=== PATIENT | female | born 1970 | race Caucasian/White ===

== ENCOUNTER 2020-01-17 13:36 | Emergency (ER) | payer OTHER, SELFPAY ==
--- NOTE | 2020-01-17 | CT_ITS ---
EXAMINATION: CT ABDOMEN AND PELVIS WITH CONTRAST CLINICAL INFORMATION: Abdominal pain COMPARISON: None TECHNIQUE: Multidetector volumetric images were obtained from the superior aspect of the liver through the pubic symphysis following administration 85 mL of Omnipaque 350 intravenous contrast. Sagittal and coronal reformatted images were obtained on the technologist's workstation. Oral contrast: Yes This CT examination was performed using dose optimization techniques as appropriate, variously including the following: *Automated exposure control *Adjustment of mA and/or kV according to patient size (this includes techniques or standardized protocols for targeted exams where dose is matched to indication/reason for exam; i.e. extremities or head) *Use of iterative reconstruction technique DLP: 924 mGy-cm FINDINGS: LUNG BASES: The visualized lung bases are unremarkable. LIVER, GALLBLADDER, AND BILIARY TREE: The liver is normal in size, shape, and attenuation. No focal hepatic lesion or biliary ductal dilatation is present. The gallbladder is unremarkable with no evidence of radiopaque gallstones, gallbladder wall thickening, or obvious pericholecystic inflammatory changes. PANCREAS: Unremarkable. SPLEEN: Unremarkable. ADRENAL GLANDS: Unremarkable. KIDNEYS AND URETERS: The kidneys are normal in size, shape, and attenuation. No hydronephrosis, hydroureter, or calculi seen. No perinephric stranding. BLADDER: Unremarkable. GASTROINTESTINAL TRACT: There is mild diverticulosis of the colon. The small and large bowel are otherwise unremarkable. The appendix is unremarkable. ABDOMINAL WALL: No significant hernia is appreciated. LYMPH NODES: Normal. VASCULAR: Unremarkable. PELVIC VISCERA: There is a lobulated contour to the posterior body of the uterus. This is slightly increased in attenuation with respect to the uterus and is questionable for a fibroid. There is a 1.8 cm slightly irregularly-shaped cyst in the right ovary. There is a small amount of fluid in the pelvis. OSSEOUS STRUCTURES: Unremarkable. IMPRESSION: 1.8 cm slightly complex right ovarian cyst and small amount of fluid in the pelvis. Question posterior uterine fibroid. Findings could be better evaluated with pelvic ultrasound if clinically indicated. Mild diverticulosis of the colon. No evidence of diverticulitis.
[2020-01-17 13:44] VITALS: BP 114/76; PULSE 87; RESP 16; TEMP 36.5; O2SAT 100; BMI 70.5
--- NOTE | 2020-01-17 13:58 | ED_ITS ---
HPI - Abdominal Pain General Chief Complaint: Abdominal Pain Stated Complaint: abdominal pain Time Seen by Provider: 01/17/20 13:58 Source: patient Mode of arrival: ambulatory Limitations: no limitations History of Present Illness HPI narrative: 49 y/o female presenting with acute onset of lower abdominal pain that started this morning. She describes it as sharp, intense 10/10 pain that radiates to her entire abdomen. She had nausea when the pain was severe but no vomiting, diarrhea, or fevers. Pain is significantly improved and now described as sore. MD elicited complaint: abdominal pain Pertinent past history: none Onset (ago): hour(s) (4) Pain Consistency: constant Location: RLQ and LLQ Severity: severe Quality: cramping and stabbing Radiation: RUQ and epigastric Migration to: no migration Exacerbating factors: movement Relieving factors: nothing Associated symptoms: nausea Related Data Patient : No Previous Rx's Medication Instructions Recorded naproxen 500 mg PO BID PRN #20 tab 01/17/20 oxycodone 5 mg PO Q8H PRN #10 tab NS 01/17/20 Allergies Allergy/AdvReac Type Severity Reaction Status Date / Time No Known Allergies Allergy Unverified 12/26/19 15:41 Review of Systems Review of Systems Constitutional: No Fever, No Chills ENT/Mouth: No sore throat, No Rhinorrhea, No Swallowing Difficulty Eyes: No Eye Pain, No Swelling, No Redness Cardiovascular: No Chest Pain, No SOB, No Orthopnea, No Edema Respiratory: No Cough, No Sputum, No Wheezing, No dyspnea Gastrointestinal: + Nausea, No Vomiting, No Diarrhea, + abdominal Pain, No Hematochezia, No Melena Genitourinary: No Dysuria, No Urinary Frequency, No Hematuria, No vaginal discharge or bleeding Musculoskeletal: No joint pain, No Myalgias Skin: No Skin Lesions, No rash Neuro: No Weakness, No Numbness, No Dizziness, No Headache Psych: No Anxiety/Panic, No Depression Heme/Lymph: No Bruising, No Lymphadenopathy Endocrine: No Polyuria, No Polydipsia Physical Exam Vital Signs and I&O and Narrative: Vital Signs and I&O: Vital Signs Temp 97.7 F 01/17/20 13:44 Pulse 78 01/17/20 15:48 Resp 16 01/17/20 15:48 BP 150/76 H 01/17/20 15:48 Pulse Ox 100 01/17/20 15:48 Intake & Output 01/16/20 01/17/20 01/17/20 18:59 06:59 18:59 Weight 236 kg Body Mass Index 70.5 Appearance: Alert. Oriented X3. No acute distress. Eyes: Pupils equal, round and reactive to light. ENT: Pharynx normal. Neck: Normal inspection. Neck supple. CVS: Normal heart rate and rhythm. Pulses normal. Respiratory: No respiratory distress. Breath sounds normal. Abdomen: Soft, lower abdominal tenderness without rebound or guarding, no masses. +BS x4 exam deferred Skin: Skin warm and dry. Normal skin color. Normal skin turgor. No rashes. Extremities: No lower extremity edema. Neuro: Oriented X 3. No motor deficit. No sensory deficit. Course Course Course Narrative: given dose of morphine with resolution of the pain. Labs unremarkable. CT scan showing 1.8 cm complex ovarian cyst. It is possible that she had brief ovarian torsion and she was counseled on this. She has had no further abdominal pain here. She agrees to follow up with her MICROCOMPUTER SUPPORT SPECIALIST and return to the ED if severe pain recurs. She is stable for discharge. MDM - Abdominal Pain Differential Diagnosis Differential diagnosis: Likely abdominal pain, constipation, diverticulitis, endometriosis, gastroenteritis, ovarian cyst and renal colic Medical Records Attestation: I reviewed the patient's medical records. Lab Data Attestation: I reviewed the patient's lab results. Result diagrams: 01/17/20 14:46 01/17/20 14:46 Labs: Lab Results 01/17/20 01/17/20 01/17/20 Range/Units 14:46 14:46 15:14 WBC 10.5 (4.8-10.8) X10*3/uL RBC 4.52 (4.20-5.50) X10*6/uL Hgb 13.8 (12.0-16.0) g/dl Hct 41.6 (37-47) % MCV 92.0 (80-98) fL MCH 30.5 (27.0-33.0) pg MCHC 33.2 (31.0-35.0) g/dl RDW 14.5 (11.0-16.0) % Plt Count 289 (160-400) X10*3/uL MPV 10.3 (9.4-12.3) fL Immature Gran % (Auto) 0.3 (0.0-0.4) % Neut % (Auto) 76.3 H (45-73) % Lymph % (Auto) 11.8 L (20-40) % [place] % (Auto) 10.9 (2-11) % Eos % (Auto) 0.2 (0-4) % Baso % (Auto) 0.5 (0-2) % Lymph # (Auto) 1.2 (1.2-4.9) X10*3/uL [place] # (Auto) 1.1 (0.1-1.2) X10*3/uL Eos # (Auto) 0.0 (0.0-0.4) X10*3/uL Baso # (Auto) 0.1 (0.0-0.2) X10*3/uL Abs Immat Gran (auto) 0.03 (0.00-0.03) X10*3/uL Absolute Neuts (auto) 8.0 (2.0-8.3) X10*3/uL Absolute Nucleated RBC 0.000 (0.0-0.012) X10*3/uL Nucleated RBC % (auto) 0.0 (0.0-0.2) /100WBC Sodium 135 (135-145) mmol/L Potassium 4.2 (3.3-5.1) mmol/l Chloride 104 (96-108) mmol/L Carbon Dioxide 23 (22-29) mmol/L Anion Gap 12 (12-20) BUN 10 (9-16) mg/dL Creatinine 0.89 (0.5-1.4) mg/dL Estim Creat Clear Calc 170.5 Estimated GFR > 60 Random Glucose 89 (60-115) mg/dL Calcium 9.3 (8.4-10.2) mg/dL Total Bilirubin 0.7 (0.0-1.0) mg/dL Direct Bilirubin 0.3 (0.0-0.5) mg/dL AST 18 (5-31) U/L ALT 19 (0-31) U/L Alkaline Phosphatase 74 (39-117) U/L Total Protein 7.1 (6.5-8.0) g/dL Albumin 4.5 (3.5-5.0) g/dL Lipase 5 L (8-78) U/L Urine Color YELLOW Urine Appearance CLEAR Urine pH 6.0 (5.0-8.0) Ur Specific [place] <= 1.005 (1.005-1.025) Urine Protein NEG (NEG-TRACE) MG/DL Urine Glucose (UA) NEG (NEG) MG/DL Urine Ketones 15 (NEG) MG/DL Urine Blood TRACE (NEG) Urine Nitrite NEG (NEG) Ur Leukocyte Esterase NEG (NEG) Urine RBC 0-2 (0) /HPF Urine WBC 0 (0-4) /HPF Ur Squamous Epith Cells TRACE /LPF Urine Bacteria NONE /LPF Urine Test NEGATIVE (NEGATIVE) Critical Care Time Critical Care Time Critical Care Time: No Discharge Plan Discharge Clinical Impression: Ovarian cyst Qualifiers: Laterality: right Qualified Code(s): N83.201 - Unspecified ovarian cyst, right side Patient Disposition: Home, Self-Care Instructions: Ovarian Cyst (ED) Additional Instructions: Follow up with your Certified Medicine Aide for further management. If you have recurrent severe pain, call 911 or come back to the ER for further evaluation. Prescriptions: New oxycodone 5 mg tablet 5 mg PO Q8H PRN (Reason: pain) Qty: 10 RF: 0 naproxen 500 mg tablet 500 mg PO BID PRN (Reason: pain) Qty: 20 RF: 0 Referrals: José Miguel Mohamud MD [Physician] - 2 days COUNTS INCLUDE 234 BEDS AT THE [facility] Past Medical History Attestation statement: The following information was validated with the patient. Medical History (Updated 01/17/20 @ 16:49 by LAWSON Garcia) No known health problems Social History Social History Advance Directives: Yes Advance Directives Information Provided: Yes Advance Directives on File: No
[2020-01-17 15:01] LABS: MANUAL DIFF FLAG NO
[2020-01-17 15:04] LABS: Basophils Absolute Auto 0.1 X10*3/uL (0.0-0.2); Basophils Percent Auto 0.5 % (0-2); Eosinophils Percent Auto 0.2 % (0-4); Hematocrit 41.6 % (37-47); Hemoglobin 13.8 g/dl (12.0-16.0); Imm Gran Abs Auto 0.03 X10*3/uL (0.00-0.03); Imm Gran Pct Auto 0.3 % (0.0-0.4); Lymphocytes Absolute Auto 1.2 X10*3/uL (1.2-4.9); Lymphocytes Percent Auto 11.8 % (20-40); Mean Corpuscular HGB Conc 33.2 g/dl (31.0-35.0); Mean Corpuscular Hemoglobin 30.5 pg (27.0-33.0); Mean Platelet Volume 10.3 fL (9.4-12.3); Monocytes Absolute Auto 1.1 X10*3/uL (0.1-1.2); Monocytes Percent Auto 10.9 % (2-11); Neutrophils Percent Auto 76.3 % (45-73); Platelet Count 289 X10*3/uL (160-400); Red Blood Count 4.52 X10*6/uL (4.20-5.50); Red Cell Distribution Width 14.5 % (11.0-16.0); White Blood Count 10.5 X10*3/uL (4.8-10.8)
[2020-01-17 15:27] LABS: Glucose Urine UA NEG (NEG); Leukocyte Esterase Urine NEG (NEG); Nitrite Urine NEG (NEG); Specific Gravity - Urine <= 1.005 (1.005-1.025); Urine Blood TRACE (NEG); Urine Ketones 15 MG/DL (NEG); Urine Protein NEG (NEG-TRACE)
[2020-01-17 15:30] VITALS: RESP 18
[2020-01-17] MEDS: Morphine Sulfate 4 MG/ML CARTRIDGE IVPUSH (15:30)
[2020-01-17 15:31] LABS: Appearance Urine CLEAR; Color Urine YELLOW
[2020-01-17 15:32] LABS: Alanine Aminotransferase 19 U/L (0-31); Albumin Level 4.5 g/dL (3.5-5.0); Alkaline Phosphatase 74 U/L (39-117); Anion Gap 12 (12-20); Aspartate Amino Transferase 18 U/L (5-31); Bilirubin Direct 0.3 mg/dL (0.0-0.5); Bilirubin Total 0.7 mg/dL (0.0-1.0); Blood Urea Nitrogen 10 mg/dL (9-16); Calcium 9.3 mg/dL (8.4-10.2); Carbon Dioxide 23 mmol/L (22-29); Chloride 104 mmol/L (96-108); Creatinine Clr Calc Pharmacy 170.5; Estimated Glomerular Filt Rate > 60; Glucose Random 89 mg/dL (60-115); Lipase 5 U/L (8-78); Potassium 4.2 mmol/l (3.3-5.1); Sodium 135 mmol/L (135-145); Total Protein 7.1 g/dL (6.5-8.0)
--- NOTE | 2020-01-17 15:34 | PC.NURSE ---
MEDICATED FOR PAIN TRANSPORTED TO CT SCAN
[2020-01-17 15:44] LABS: RBC Urine 0-2 /HPF (0); Squamous Epithelial Cell Urine TRACE /LPF; WBC Urine 0 /HPF (0-4)
[2020-01-17] MEDS: iohexoL 350 MG/ML 100 ML INFUS..BTL 85 ML IV (15:44)
[2020-01-17 15:45] LABS: UPreg QC Valid YES; Urine Pregnancy NEGATIVE (NEGATIVE)
[2020-01-17 15:48] VITALS: BP 150/76; PULSE 78; RESP 16; O2SAT 100
--- NOTE | 2020-01-17 16:08 | PC.NURSE ---
GOOD EFFECT AFTER RECEIVING MORPHINE FOR PAIN
[2020-01-17 16:55] VITALS: BP 152/88; PULSE 75; RESP 16; TEMP 36.6
== END 2020-01-17 16:59 | disposition home or self-care (01) ==
PROVIDERS: Physician Assistant; Emergency Provider Internal Medicine; PCP Internal Medicine
DX: N83.201 Unspecified ovarian cyst, right side (principal); R11.0 Nausea
CPT/HCPCS: 36415; 74177; 80048; 80076; 81001; 81025; 83690; 85025; 96374; 99284; J2270

== ENCOUNTER 2020-11-07 16:57 | Emergency (ER) | payer OTHER, SELFPAY ==
--- NOTE | ~2020-11-07 | CT_ITS ---
EXAMINATION: CT ABDOMEN AND PELVIS WITH CONTRAST CLINICAL INFORMATION: Abdominal pain, right lower quadrant. COMPARISON: 01/17/2020 TECHNIQUE: Multidetector volumetric images were obtained from the superior aspect of the liver through the pubic symphysis following administration 85 mL of Omnipaque 350 intravenous contrast. Sagittal and coronal reformatted images were obtained on the technologist's workstation. Oral contrast: No This CT examination was performed using dose optimization techniques as appropriate, variously including the following: *Automated exposure control *Adjustment of mA and/or kV according to patient size (this includes techniques or standardized protocols for targeted exams where dose is matched to indication/reason for exam; i.e. extremities or head) *Use of iterative reconstruction technique DLP: 843 mGy-cm FINDINGS: LUNG BASES: The visualized lung bases are unremarkable. LIVER, GALLBLADDER, AND BILIARY TREE: The liver is normal in size, shape, and attenuation. No focal hepatic lesion or biliary ductal dilatation is present. The gallbladder is unremarkable with no evidence of radiopaque gallstones, gallbladder wall thickening, or obvious pericholecystic inflammatory changes. PANCREAS: Unremarkable. SPLEEN: Unremarkable. ADRENAL GLANDS: Unremarkable. KIDNEYS AND URETERS: The kidneys are normal in size, shape, and attenuation. No hydronephrosis, hydroureter, or calculi seen. No perinephric stranding. BLADDER: Unremarkable. GASTROINTESTINAL TRACT: Stomach, small bowel, and colon are normal in caliber. No bowel wall thickening. Appendix is normal in caliber. There is focal intraperitoneal free fluid in the right lower quadrant adjacent to a few loops of otherwise normal appearing small bowel as well as the right ovary. Small amount of free fluid is present in the pelvis as well. This fluid measures between 15 Hounsfield units in the right lower quadrant and 0 Hounsfield units in the pelvis. There is mild diverticulosis in the descending and sigmoid colon without evidence of acute diverticulitis. ABDOMINAL WALL: No significant hernia is appreciated. LYMPH NODES: Normal. VASCULAR: A few small atherosclerotic calcifications are present in the iliac arteries. No aneurysmal dilatation. PELVIC VISCERA: Ill-defined 4 cm fibroid is present at the posterior aspect of the uterine body. A 2.5 cm simple appearing cyst is evident at the left ovary. No discrete right ovarian cyst, though there is surrounding fluid and fat stranding in this region. OSSEOUS STRUCTURES: Minimal degenerative disc disease. No acute osseous findings. CT/CT abdomen pelvis w con IMPRESSION: Small limb of fluid in the pelvis and right lower quadrant, potentially imaging on the right ovary. No acute bowel abnormalities are identified. Normal appendix. Consider correlation with pelvic ultrasound if clinically warranted. Colonic diverticulosis without evidence of acute diverticulitis. A 4 cm uterine fibroid.
[2020-11-07 17:10] VITALS: BP 158/88; PULSE 80; TEMP 36.6; O2SAT 98; BMI 32.5
--- NOTE | 2020-11-07 17:25 | ED_ITS ---
HPI - Abdominal Pain General Chief Complaint: Abdominal Pain Stated Complaint: abd pain Source: patient Mode of arrival: ambulatory Limitations: no limitations History of Present Illness HPI narrative: 50-year-old female with past medical history of ovarian cysts presents with a few hours of 10/10 sharp stabbing and aching right lower quadrant abdominal pain. Patient was playing golf and noted to have pain so sig nificant that she had to stop, had a difficult time walking. She does not report fevers or chills, chest pain or pressure, palpitations, abnormal vaginal bleeding or discharge, dysuria, hematuria, or any other concerning symptoms. MD elicited complaint: abdominal pain Pertinent past history: other (Ovarian cysts) Onset (ago): hour(s) Pain Consistency: constant Location: RLQ Severity: severe Pain scale (0-10): 10 Quality: stabbing, aching and sharp Radiation: none Migration to: no migration Exacerbating factors: movement Relieving factors: nothing Associated symptoms: denies other symptoms Treatments prior to arrival: NSAIDs Related Data Patient : No Previous Rx's Medication Instructions Recorded naproxen 500 mg tablet 500 mg PO BID PRN #20 tab 01/17/20 oxycodone 5 mg tablet 5 mg PO Q8H PRN #10 tab NS 01/17/20 naproxen 500 mg tablet 500 mg PO BID PRN #20 tab 11/07/20 oxycodone 5 mg tablet 5 mg PO Q8H PRN #10 tab 11/07/20 Allergies Allergy/AdvReac Type Severity Reaction Status Date / Time No Known Allergies Allergy Unverified 12/26/19 15:41 Review of Systems Review of Systems Constitutional: No Weight loss, No Fever, No Chills, No Night Sweats, No Fatigue, No Malaise ENT/Mouth: No Hearing loss, No Ear Pain, No Nasal Congestion, No Sinus Pain, No Hoarseness, No sore throat, No Rhinorrhea, No Swallowing Difficulty Eyes: No Eye Pain, No Swelling, No Redness, No Foreign Body, No Discharge, No Vision Changes Cardiovascular: No Chest Pain, No SOB, No Dyspnea on Exertion, No Orthopnea, No Edema, No Palpitations Respiratory: No Cough, No Sputum, No Wheezing, No Smoke Exposure, No Dyspnea Gastrointestinal: No Nausea, no Vomiting, no Diarrhea, positive abdominal Pain, No Hematochezia, No Melena Genitourinary: no irregular bleeding, No Dysuria, No Urinary Frequency, No Hematuria, No Urinary Incontinence, No Urgency, No Flank Pain, No Urinary Flow Changes, No Hesitancy Musculoskeletal: No joint pain, No Myalgias, No Joint Swelling Skin: No Skin Lesions, No rash Neuro: No Weakness, No Numbness, No Paresthesias, No Loss of Consciousness, No Dizziness, No Headache Psych: No Anxiety/Panic, No Depression, No SI/HI/AH/VH, No Social Issues Heme/Lymph: No Bruising, No Bleeding,No Lymphadenopathy Endocrine: No Polyuria, No Polydipsia, No Temperature Intolerance Yes all other systems are reviewed and are negative Physical Exam Vital Signs: Vital Signs: Last Vital Signs Temp 98.3 F 11/07/20 19:47 Pulse 82 11/07/20 19:47 Resp 16 11/07/20 21:01 BP 142/78 H 11/07/20 19:47 Pulse Ox 99 11/07/20 19:47 Body Mass Index 32.5 Appearance: Alert. Oriented X3. Moderate distress. Eyes: Pupils equal, round and reactive to light. EOMI, sclera nonicteric ENT: Pharynx normal. Moist mucous membranes Neck: Normal inspection. Neck supple. CVS: Normal heart rate and rhythm. Pulses normal. No chest wall tenderness Respiratory: No respiratory distress. Breath sounds normal. Abdomen: Soft and positive tenderness to right lower quadrant, negative [place], positive McBurney Skin: Skin warm and dry. Normal skin color. Normal skin turgor. Extremities: No lower extremity edema. Moves all extremities against resistance, gait well balanced well coordinated. Neuro: No motor deficit. No sensory deficit. Cranial nerves 2-12 intact. No focal neural deficits. Course Course Course Narrative: 50-year-old female with past medical history ovarian cyst presents with 10/10 abdominal pain. Pain is sudden onset and not accompanied by fever or chills. There is no nausea or vomiting. Patient does not appear toxic, vital signs are within normal limits. Abdominal exam positive for McBurney's, will order CT scan of the abdomen to rule out acute abdomen. Will provide pain medications and order labs. Labs are negative. CT scan of abdomen indicates free fluid in the pelvis on the right lower quadrant, possibly right ovarian cyst rupture. Appendix is intact. Will order pain management. Discussed with Dr. Mohamud, patient will follow-up in the office on Monday. Patient verbalized understanding of and agrees plan of care discharge home. Consultations Consultation #1: [place] Time: 21:00 MDM - Abdominal Pain Differential Diagnosis Differential diagnosis: Likely abdominal pain, acute appendicitis, calculus of kidney, diverticulitis and ovarian cyst Medical Records Attestation: I reviewed the patient's medical records. Lab Data Attestation: I reviewed the patient's lab results. Result diagrams: 11/07/20 17:38 11/07/20 18:33 Labs: Lab Results 11/07/20 11/07/20 11/07/20 Range/Units 17:38 18:33 18:47 WBC 9.2 (4.8-10.8) X10*3/uL RBC 4.32 (4.20-5.50) X10*6/uL Hgb 13.5 (12.0-16.0) g/dl Hct 40.0 (37-47) % MCV 92.6 (80-98) fL MCH 31.3 (27.0-33.0) pg MCHC 33.8 (31.0-35.0) g/dl RDW 14.8 (11.0-16.0) % Plt Count 300 (160-400) X10*3/uL MPV 11.1 (9.4-12.3) fL Immature Gran % (Auto) 1.1 H (0.0-0.4) % Neut % (Auto) 80.1 H (45-73) % Lymph % (Auto) 12.1 L (20-40) % [place] % (Auto) 5.2 (2-11) % Eos % (Auto) 1.1 (0-4) % Baso % (Auto) 0.4 (0-2) % Lymph # (Auto) 1.1 L (1.2-4.9) X10*3/uL [place] # (Auto) 0.5 (0.1-1.2) X10*3/uL Eos # (Auto) 0.1 (0.0-0.4) X10*3/uL Baso # (Auto) 0.0 (0.0-0.2) X10*3/uL Abs Immat Gran (auto) 0.10 H (0.00-0.03) X10*3/uL Absolute Neuts (auto) 7.4 (2.0-8.3) X10*3/uL Absolute Nucleated RBC 0.000 (0.0-0.012) X10*3/uL Nucleated RBC % (auto) 0.0 (0.0-0.2) /100WBC Sodium 141 (135-145) mmol/L Potassium 4.0 (3.3-5.1) mmol/L Chloride 108 (96-108) mmol/L Carbon Dioxide 21 L (22-29) mmol/L Anion Gap 16 (12-20) BUN 10 (9-16) mg/dL Creatinine 0.83 (0.5-1.4) mg/dL Estim Creat Clear Calc 114.3 Estimated GFR > 60 Random Glucose 77 (60-115) mg/dL Calcium 9.3 (8.4-10.2) mg/dL Total Bilirubin 0.2 (0.0-1.0) mg/dL AST 20 (5-31) U/L ALT 16 (0-31) U/L Alkaline Phosphatase 71 (39-117) U/L Total Protein 6.7 (6.5-8.0) g/dL Albumin 4.1 (3.5-5.0) g/dL Urine Color STRAW Urine Appearance CLEAR Urine pH 5.5 (5.0-8.0) Ur Specific [place] <= 1.005 (1.005-1.025) Urine Protein NEG (NEG-TRACE) MG/DL Urine Glucose (UA) NEG (NEG) MG/DL Urine Ketones NEG (NEG) MG/DL Urine Blood NEG (NEG) Urine Nitrite NEG (NEG) Ur Leukocyte Esterase NEG (NEG) Urine Test (NEGATIVE) 11/07/20 Range/Units 18:47 WBC (4.8-10.8) X10*3/uL RBC (4.20-5.50) X10*6/uL Hgb (12.0-16.0) g/dl Hct (37-47) % MCV (80-98) fL MCH (27.0-33.0) pg MCHC (31.0-35.0) g/dl RDW (11.0-16.0) % Plt Count (160-400) X10*3/uL MPV (9.4-12.3) fL Immature Gran % (Auto) (0.0-0.4) % Neut % (Auto) (45-73) % Lymph % (Auto) (20-40) % [place] % (Auto) (2-11) % Eos % (Auto) (0-4) % Baso % (Auto) (0-2) % Lymph # (Auto) (1.2-4.9) X10*3/uL [place] # (Auto) (0.1-1.2) X10*3/uL Eos # (Auto) (0.0-0.4) X10*3/uL Baso # (Auto) (0.0-0.2) X10*3/uL Abs Immat Gran (auto) (0.00-0.03) X10*3/uL Absolute Neuts (auto) (2.0-8.3) X10*3/uL Absolute Nucleated RBC (0.0-0.012) X10*3/uL Nucleated RBC % (auto) (0.0-0.2) /100WBC Sodium (135-145) mmol/L Potassium (3.3-5.1) mmol/L Chloride (96-108) mmol/L Carbon Dioxide (22-29) mmol/L Anion Gap (12-20) BUN (9-16) mg/dL Creatinine (0.5-1.4) mg/dL Estim Creat Clear Calc Estimated GFR Random Glucose (60-115) mg/dL Calcium (8.4-10.2) mg/dL Total Bilirubin (0.0-1.0) mg/dL AST (5-31) U/L ALT (0-31) U/L Alkaline Phosphatase (39-117) U/L Total Protein (6.5-8.0) g/dL Albumin (3.5-5.0) g/dL Urine Color Urine Appearance Urine pH (5.0-8.0) Ur Specific [place] (1.005-1.025) Urine Protein (NEG-TRACE) MG/DL Urine Glucose (UA) (NEG) MG/DL Urine Ketones (NEG) MG/DL Urine Blood (NEG) Urine Nitrite (NEG) Ur Leukocyte Esterase (NEG) Urine Test NEGATIVE (NEGATIVE) Imaging Data CT scan - abdomen: Attestation: I personally reviewed and interpreted this imaging study as follows: Radiologist's impression: CT ABDOMEN AND PELVIS WITH CONTRAST? CLINICAL INFORMATION: Abdominal pain, right lower quadrant.? COMPARISON: 01/17/2020? TECHNIQUE: Multidetector volumetric images were obtained from the superior aspect of the liver through the pubic symphysis following administration 85 mL of Omnipaque 350 intravenous contrast. Sagittal and coronal reformatted images were obtained on the technologist's workstation.? Oral contrast: No This CT examination was performed using dose optimization techniques as appropriate, variously including the following: *Automated exposure control *Adjustment of mA and/or kV according to patient size (this includes techniques or standardized protocols for targeted exams where dose is matched to indication/reason for exam; i.e. extremities or head) *Use of iterative reconstruction technique DLP: 843 mGy-cm FINDINGS: LUNG BASES: The visualized lung bases are unremarkable.? LIVER, GALLBLADDER, AND BILIARY TREE: The liver is normal in size, shape, and attenuation. No focal hepatic lesion or biliary ductal dilatation is present. The gallbladder is unremarkable with no evidence of radiopaque gallstones, gallbladder wall thickening, or obvious pericholecystic inflammatory changes.? PANCREAS: Unremarkable.? SPLEEN: Unremarkable.? ADRENAL GLANDS: Unremarkable.? KIDNEYS AND URETERS: The kidneys are normal in size, shape, and attenuation. No hydronephrosis, hydroureter, or calculi seen. No perinephric stranding. ? BLADDER: Unremarkable.? GASTROINTESTINAL TRACT: Stomach, small bowel, and colon are normal in caliber. No bowel wall thickening. Appendix is normal in caliber. There is focal intraperitoneal free fluid in the right lower quadrant adjacent to a few loops of otherwise normal appearing small bowel as well as the right ovary. Small amount of free fluid is present in the pelvis as well. This fluid measures between 15 Hounsfield units in the right lower quadrant and 0 Hounsfield units in the pelvis. There is mild diverticulosis in the descending and sigmoid colon without evidence of acute diverticulitis. ABDOMINAL WALL: No significant hernia is appreciated.? LYMPH NODES: Normal. VASCULAR: A few small atherosclerotic calcifications are present in the iliac arteries. No aneurysmal dilatation. PELVIC VISCERA: Ill-defined 4 cm fibroid is present at the posterior aspect of the uterine body. A 2.5 cm simple appearing cyst is evident at the left ovary. No discrete right ovarian cyst, though there is surrounding fluid and fat stranding in this region.? OSSEOUS STRUCTURES: Minimal degenerative disc disease. No acute osseous findings. CT/CT abdomen pelvis w con IMPRESSION: Small limb of fluid in the pelvis and right lower quadrant, potentially imaging on the right ovary. No acute bowel abnormalities are identified. Normal appendix. Consider correlation with pelvic ultrasound if clinically warranted. ? Colonic diverticulosis without evidence of acute diverticulitis. ? A 4 cm uterine fibroid.? Discharge Plan Discharge Clinical Impression: Ovarian cyst rupture Ovarian cyst Qualifiers: Laterality: right Qualified Code(s): N83.201 - Unspecified ovarian cyst, right side Patient Disposition: Home, Self-Care Instructions: Ovarian Cyst (ED), Ruptured Ovarian Cyst (ED) Additional Instructions: You were evaluated for right lower quadrant abdominal pain. CT scan indicates some free fluid in the pelvis surrounding the right ovary. This may be ovarian cyst rupture. Please follow-up with OBGYN. I consulted Dr. Mohamud with your case. Please call on Monday for an appointment. His office is expecting your call. Please use naproxen to help reduce cramping and pain. Please use oxycodone for pain management. This medication is a narcotic and has high risk for addiction and abuse. Do not drive or operate machinery while taking this medication this medication is also constipating please use MiraLax or Colace to help soften stools. Thank you for choosing this emergency department for evaluation. Please follow-up with primary care physician as needed. Return to the emergency department for any new, concerning, or worsening symptoms. Prescriptions: New oxycodone 5 mg tablet 5 mg PO Q8H PRN (Reason: pain) Qty: 10 RF: 0 naproxen 500 mg tablet 500 mg PO BID PRN (Reason: pain) Qty: 20 RF: 0 No Action oxycodone 5 mg tablet 5 mg PO Q8H PRN (Reason: pain) Qty: 10 RF: 0 naproxen 500 mg tablet 500 mg PO BID PRN (Reason: pain) Qty: 20 RF: 0 Referrals: José Miguel Mohamud MD [Physician] - 2 days (Suspected Ruptured ovarian cyst) Interventions: ED Discharge Assessment Last Done: 11/07/20 21:27 Discharge Date/Time: 11/07/20 21:27 [facility] Past Medical History Attestation statement: The following information was validated with the patient. Source: old records reviewed Medical History No known health problems Social History Social History Patient Tobacco Use Status: Current everyday Tobacco user Use of substances other than those prescribed or required for medical reasons: No Advance Directives: No Advance Directives Information Provided: Yes
[2020-11-07] MEDS: Morphine Sulfate 4 MG/ML CARTRIDGE IVPUSH ×3 (17:42→19:55)
[2020-11-07 17:43] LABS: MANUAL DIFF FLAG NO
[2020-11-07 17:56] LABS: Basophils Percent Auto 0.4 % (0-2); Eosinophils Absolute Auto 0.1 X10*3/uL (0.0-0.4); Eosinophils Percent Auto 1.1 % (0-4); Hemoglobin 13.5 g/dl (12.0-16.0); Imm Gran Pct Auto 1.1 % (0.0-0.4); Lymphocytes Absolute Auto 1.1 X10*3/uL (1.2-4.9); Lymphocytes Percent Auto 12.1 % (20-40); Mean Corpuscular HGB Conc 33.8 g/dl (31.0-35.0); Mean Corpuscular Hemoglobin 31.3 pg (27.0-33.0); Mean Corpuscular Volume 92.6 fL (80-98); Mean Platelet Volume 11.1 fL (9.4-12.3); Monocytes Absolute Auto 0.5 X10*3/uL (0.1-1.2); Monocytes Percent Auto 5.2 % (2-11); Neutrophils Absolute Auto 7.4 X10*3/uL (2.0-8.3); Neutrophils Percent Auto 80.1 % (45-73); Platelet Count 300 X10*3/uL (160-400); Red Blood Count 4.32 X10*6/uL (4.20-5.50); Red Cell Distribution Width 14.8 % (11.0-16.0); White Blood Count 9.2 X10*3/uL (4.8-10.8)
[2020-11-07 18:05] VITALS: O2SAT 99
[2020-11-07 18:48] VITALS: BP 156/79; PULSE 77; RESP 20; O2SAT 97
[2020-11-07 18:54] LABS: Glucose Urine UA NEG (NEG); Leukocyte Esterase Urine NEG (NEG); Nitrite Urine NEG (NEG); PH 5.5 (5.0-8.0); Specific Gravity - Urine <= 1.005 (1.005-1.025); Urine Blood NEG (NEG); Urine Ketones NEG (NEG); Urine Protein NEG (NEG-TRACE)
[2020-11-07 18:56] LABS: Appearance Urine CLEAR; Color Urine STRAW
[2020-11-07 19:07] LABS: Alanine Aminotransferase 16 U/L (0-31); Albumin Level 4.1 g/dL (3.5-5.0); Alkaline Phosphatase 71 U/L (39-117); Anion Gap 16 (12-20); Aspartate Amino Transferase 20 U/L (5-31); Bilirubin Total 0.2 mg/dL (0.0-1.0); Blood Urea Nitrogen 10 mg/dL (9-16); Calcium 9.3 mg/dL (8.4-10.2); Carbon Dioxide 21 mmol/L (22-29); Chloride 108 mmol/L (96-108); Creatinine Clr Calc Pharmacy 114.3; Estimated Glomerular Filt Rate > 60; Glucose Random 77 mg/dL (60-115); Sodium 141 mmol/L (135-145); Total Protein 6.7 g/dL (6.5-8.0)
[2020-11-07] MEDS: iohexoL 350 MG/ML 100 ML INFUS..BTL IV (19:44)
[2020-11-07 19:47] VITALS: BP 142/78; PULSE 82; RESP 16; TEMP 36.8; O2SAT 99
[2020-11-07 20:48] VITALS: RESP 16
[2020-11-07 21:01] VITALS: RESP 16
[2020-11-07 21:26] LABS: UPreg QC Valid YES; Urine Pregnancy NEGATIVE (NEGATIVE)
== END 2020-11-07 21:27 | disposition home or self-care (01) ==
PROVIDERS: Nurse Practitioner Family; Emergency Provider Emergency Medicine Emergency Medical Services; PCP Internal Medicine
DX: N83.201 Unspecified ovarian cyst, right side (principal); R10.31 Right lower quadrant pain; F17.210 Nicotine dependence, cigarettes, uncomplicated
CPT/HCPCS: 36415; 74177; 80053; 81003; 81025; 85025; 96374; 96375; 96376; 99284; J2270; J2405; Q9967

== ENCOUNTER 2020-11-12 10:32 | Outpatient (REF) | payer OTHER, SELFPAY ==
[2020-11-12 13:09] LABS: Hemoglobin 12.7 g/dl (12.0-16.0); Mean Corpuscular HGB Conc 31.8 g/dl (31.0-35.0); Mean Corpuscular Hemoglobin 29.8 pg (27.0-33.0); Mean Corpuscular Volume 93.9 fL (80-98); Mean Platelet Volume 11.5 fL (9.4-12.3); Platelet Count 354 X10*3/uL (160-400); Red Blood Count 4.26 X10*6/uL (4.20-5.50); Red Cell Distribution Width 14.6 % (11.0-16.0); White Blood Count 5.2 X10*3/uL (4.8-10.8)
[2020-11-12 13:45] LABS: HCG Quantitative < 2 mIU/mL; TSH reflex Free T4 2.43 uIU/mL (0.32-4.0)
[2020-11-13 09:53] LABS: CT PCR NOT DETECTED (Not Detect.); NG PCR NOT DETECTED (Not Detect.)
== END 2020-11-12 10:33 | disposition home or self-care (01) ==
LOC: HO.LAB 10:32
PROVIDERS: PCP Internal Medicine; Visit Provider Obstetrics & Gynecology
DX: N83.209 Unspecified ovarian cyst, unspecified side (principal); D21.9 Benign neoplasm of connective and other soft tissue, unspecified; N93.9 Abnormal uterine and vaginal bleeding, unspecified
CPT/HCPCS: 36415; 84443; 84702; 85027; 87491; 87591; 99202

== ENCOUNTER 2020-11-26 14:14 | Outpatient (REF) | payer OTHER, SELFPAY ==
--- NOTE | ~2020-11-26 | US_ITS ---
EXAMINATION: US PELVIS CLINICAL INFORMATION: Abnormal uterine and vaginal bleeding COMPARISON: None TECHNIQUE: Ultrasound of the pelvis is performed using both transabdominal and transvaginal transducers along with Doppler. Transvaginal imaging is performed due to inadequate visualization transabdominally. FINDINGS: The uterus is anteverted measuring 9.7 cm in length, 4.4 cm in AP and 5.5 cm in transverse dimension. There are 2 hypoechoic lesions. 1. Lesion in the right fundus measuring 2.4 x 2.6 x 2.6 cm. 2. Lesion in the right body of uterus measuring 3.6 x 3.2 x 4.0 cm. This lesion was seen on the previous CT abdomen and pelvis exam 11/07/2020. The right ovary measures 4.4 x 3.0 x 2.1 cm and volume 14.5 mL. There are small follicles visualized. Left ovary measures 3.3 x 2.6 x 1.7 cm and volume 7.6 mL. There are small follicles seen. There is no free fluid in the cul-de-sac. US/US pelvic and transvaginal IMPRESSION: Anteverted uterus with at least 2 uterine fibroids. Bilateral ovarian small follicular cyst. The ovaries are unremarkable. There is no free fluid in the cul-de-sac.
== END 2020-11-26 14:15 | disposition home or self-care (01) ==
LOC: HO.US 14:14
PROVIDERS: PCP Internal Medicine; Visit Provider Obstetrics & Gynecology
DX: N93.9 Abnormal uterine and vaginal bleeding, unspecified (principal)
CPT/HCPCS: 76830; 76856

== ENCOUNTER 2020-12-31 10:34 | Outpatient (REF) | payer OTHER, SELFPAY ==
[2021-01-05 02:21] LABS: HPV mRNA E6/E7 rflx Not Detected (Not Detected)
== END 2020-12-31 10:35 | disposition home or self-care (01) ==
LOC: HO.LAB 10:34
PROVIDERS: PCP Internal Medicine; Visit Provider Obstetrics & Gynecology
DX: Z01.411 Encounter for gynecological examination (general) (routine) with abnormal findings (principal); Z11.51 Encounter for screening for human papillomavirus (HPV); R10.2 Pelvic and perineal pain; N93.9 Abnormal uterine and vaginal bleeding, unspecified
CPT/HCPCS: 87624; 88142; 99212

== ENCOUNTER 2020-12-31 11:56 | Emergency (ER) | payer OTHER, SELFPAY ==
--- NOTE | ~2020-12-31 | CT_ITS ---
EXAMINATION: CT ABDOMEN AND PELVIS WITH CONTRAST CLINICAL INFORMATION: Right lower quadrant pain. Rule out appendicitis. COMPARISON: CT abdomen/pelvis dated from 11/07/2020 and 01/17/2020. TECHNIQUE: Multidetector volumetric images were obtained from the superior aspect of the liver through the pubic symphysis following administration 85 mL of Omnipaque 350 intravenous contrast. Sagittal and coronal reformatted images were obtained on the technologist's workstation. Oral contrast: No This CT examination was performed using dose optimization techniques as appropriate, variously including the following: *Automated exposure control *Adjustment of mA and/or kV according to patient size (this includes techniques or standardized protocols for targeted exams where dose is matched to indication/reason for exam; i.e. extremities or head) *Use of iterative reconstruction technique DLP: 835 mGy-cm FINDINGS: LUNG BASES: The visualized lung bases are unremarkable. LIVER, GALLBLADDER, AND BILIARY TREE: The liver is normal in size, shape, and attenuation. No focal hepatic lesion or biliary ductal dilatation is present. The gallbladder is unremarkable with no evidence of radiopaque gallstones, gallbladder wall thickening, or obvious pericholecystic inflammatory changes. PANCREAS: No focal lesions. The main pancreatic duct is nondilated. There is no significant peripancreatic free fluid or fat stranding. SPLEEN: Unremarkable. ADRENAL GLANDS: Unremarkable. KIDNEYS AND URETERS: The kidneys are normal in size, shape, and attenuation. No hydronephrosis, hydroureter, or calculi seen. No perinephric stranding. BLADDER: Unremarkable. GASTROINTESTINAL TRACT: The stomach and the small bowel are nondilated. The appendix is unremarkable. There is moderate diverticulosis throughout the descending colon and sigmoid colon but no evidence of acute diverticulitis. There is no bowel obstruction. ABDOMINAL WALL: No significant hernia is appreciated. LYMPH NODES: No lymphadenopathy by size criteria. VASCULAR: Unremarkable. PELVIC VISCERA: Anteverted uterus. Redemonstration of an approximately 4.3 cm fibroid in the posterior aspect of the lower uterine body, unchanged since 2019. In the left ovary there is a 2.4 cm simple functional follicle no require further workup. In the right ovary there is a thinly septated versus 2 closely apposed hyperattenuating lesions (up to 33 Hounsfield units) measuring approximately 4.4 x 3.1 cm which are almost certainly benign. OSSEOUS STRUCTURES: No acute or aggressive osseous abnormalities. CT/CT abdomen pelvis w con IMPRESSION: Normal appendix. Diverticulosis but no evidence of acute diverticulitis. Hyperattenuating lesions in the right ovary are almost certainly benign representing hemorrhagic cysts/follicles. A follow-up pelvic ultrasound in 6-12 weeks could be obtained if clinically indicated. Uterine fibroid.
[2020-12-31 12:35] VITALS: BP 190/92; PULSE 65; RESP 16; TEMP 36.6; O2SAT 98; BMI 31.1
[2020-12-31 13:32] LABS: MANUAL DIFF FLAG NO
[2020-12-31 13:35] LABS: Basophils Percent Auto 0.7 % (0-2); Eosinophils Absolute Auto 0.1 X10*3/uL (0.0-0.4); Eosinophils Percent Auto 1.9 % (0-4); Hemoglobin 13.4 g/dl (12.0-16.0); Imm Gran Abs Auto 0.02 X10*3/uL (0.00-0.03); Imm Gran Pct Auto 0.3 % (0.0-0.4); Lymphocytes Absolute Auto 1.3 X10*3/uL (1.2-4.9); Lymphocytes Percent Auto 22.4 % (20-40); Mean Corpuscular HGB Conc 32.7 g/dl (31.0-35.0); Mean Corpuscular Hemoglobin 30.5 pg (27.0-33.0); Mean Corpuscular Volume 93.4 fL (80-98); Mean Platelet Volume 10.1 fL (9.4-12.3); Monocytes Absolute Auto 0.5 X10*3/uL (0.1-1.2); Monocytes Percent Auto 9.1 % (2-11); Neutrophils Absolute Auto 3.9 X10*3/uL (2.0-8.3); Neutrophils Percent Auto 65.6 % (45-73); Platelet Count 331 X10*3/uL (160-400); Red Blood Count 4.39 X10*6/uL (4.20-5.50); Red Cell Distribution Width 14.7 % (11.0-16.0); White Blood Count 5.9 X10*3/uL (4.8-10.8)
[2020-12-31 13:49] LABS: Alanine Aminotransferase 13 U/L (0-31); Alkaline Phosphatase 70 U/L (39-117); Anion Gap 12 (12-20); Aspartate Amino Transferase 14 U/L (5-31); Bilirubin Total 0.2 mg/dL (0.0-1.0); Blood Urea Nitrogen 10 mg/dL (9-16); Calcium 9.7 mg/dL (8.4-10.2); Carbon Dioxide 24 mmol/L (22-29); Chloride 108 mmol/L (96-108); Creatinine Clr Calc Pharmacy 110.6; Estimated Glomerular Filt Rate > 60; Glucose Random 93 mg/dL (60-115); Potassium 4.8 mmol/L (3.3-5.1); Sodium 139 mmol/L (135-145); Total Protein 6.6 g/dL (6.5-8.0)
[2020-12-31] MEDS: iohexoL 350 MG/ML 100 ML INFUS..BTL IV (15:42)
--- NOTE | 2020-12-31 17:21 | ED_ITS ---
HPI - Abdominal Pain General Chief Complaint: Abdominal Pain Stated Complaint: ABD PAIN Time Seen by Provider: 12/31/20 14:21 Source: patient Mode of arrival: ambulatory Limitations: no limitations History of Present Illness HPI narrative: 50-year-old female who is being followed by Dr. Oneida Monroy for irregular vaginal bleeding and history of ovarian cyst presenting to the ED after being sent by Dr. Mohamud to rule out appendicitis as patient has been having right lower quadrant/left lower quadrant/suprapubic abdominal pain for the past few days worse today. The abdominal pain radiates to her back. It is worse on the right lower quadrant. She denies any fevers, chills, dizziness, headaches, chest pain or shortness of breath, dysuria, hematuria, black or bloody stools, diarrhea or constipation, abnormal vaginal discharge, weakness, recent travel or sick contacts or any other symptoms complaints or concerns at this time. Dr. Oneida hathaway called me to expect this patient and he already had a UA in the office which was negative. MD elicited complaint: abdominal pain Pertinent past history: other (Ovarian cyst being followed by Dr. Mohamud) Onset (ago): day(s) (For the past few days worse today) Pain Consistency: constant Location: RLQ and LLQ Severity: moderate Quality: cramping and aching Radiation: none and back Exacerbating factors: nothing Relieving factors: nothing Associated symptoms: denies other symptoms Treatments prior to arrival: other (Naproxen and no symptomatic relief) Related Data Home Medications Medication Instructions Recorded Confirmed albuterol sulfate 2 mg/5 mL oral 2 mg PO TID 11/12/20 syrup azelastine 137 mcg (0.1 %) nasal 2 spray INTRANASAL BID 11/12/20 spray aerosol dicyclomine 10 mg capsule 10 mg PO QID 11/12/20 fluticasone furoate 200 1 inh PO DAILY 11/12/20 mcg/actuation blister powder for inhalation (Arnuity Ellipta) fluticasone propionate 220 2 puff INHALATION BID 11/12/20 mcg/actuation HFA aerosol inhaler (Flovent HFA) omeprazole 20 mg capsule,delayed 20 mg PO DAILY 11/12/20 release Previous Rx's Medication Instructions Recorded naproxen 500 mg tablet 500 mg PO BID PRN #20 tab 11/07/20 oxycodone 5 mg tablet 5 mg PO Q6H PRN #14 tab 12/31/20 Allergies Allergy/AdvReac Type Severity Reaction Status Date / Time No Known Allergies Allergy Verified 12/31/20 11:01 Review of Systems Review of Systems Constitutional : No Weight loss, No Fever, No Chills, No Night Sweats, No Fatigue, NoMalaise ENT/Mouth: No ear pain, No sore throat, No Difficulty swallowing Cardiovascular : No Chest Pain, No SOB, No Dyspnea on Exertion, No Orthopnea, NoEdema, No Palpitations Respiratory : No Cough, No Sputum, No Wheezing, No Dyspnea Gastrointestinal : Positive abdominal pain radiating to her lower back, No Nausea, No Vomiting, No Diarrhea, No blood streaked emesis, No coffee-ground emesis, No gross hematemesis, No blood streak stool, No gross hematochezia, No Melena Genitourinary : Positive irregular bleeding, No Dysuria, No Urinary Frequency, No Hematuria,No Urinary Incontinence, No Urgency, No Flank Pain Musculoskeletal : No joint pain, No Myalgias, No Joint Swelling Skin : No Skin Lesions, No rash Neuro : No Weakness, No Numbness, No Paresthesias, No Loss of Consciousness, NoDizziness, No Headache Psych : No Social Issues, Heme/Lymph: No Bruising, No Bleeding,No Lymphadenopathy Endocrine : No Polyuria, No Polydipsia, No Temperature Intolerance Yes all other systems are reviewed and are negative Physical Exam Vital Signs: Vital Signs: Last Vital Signs Temp 98 F 12/31/20 12:35 Pulse 65 12/31/20 12:35 Resp 16 12/31/20 12:35 BP 190/92 H 12/31/20 12:35 Pulse Ox 98 12/31/20 12:35 Body Mass Index 31.1 vital signs have been reviewed as normal and appeared to be correct. Blood pressure 190/92. Heart rate normal. Respiration rate normal. Temperature normal. Oxygen saturation normal. Appearance: Alert. Oriented X3. No acute distress. Head: Normal external exam. Normocephalic. Eyes: PERRLA. EOMI. Conjunctiva and sclera normal. Eyelids normal. ENT: Pharynx normal. Uvula midline. Moist mucous membranes. Neck: Normal inspection. Neck supple. FROM. No adenopathy. No meningeal signs. CVS: Normal heart rate and rhythm. Heart sound normal. No murmurs noted. Pulses normal throughout. Respiratory: No respiratory distress. Painless inspiration. Breath sounds normal. No wheezes/rales/rhonchi noted. Chest nontender. No accessory muscle usage noted or decreased air movement noted. Abdomen: Soft and tenderness up patient to right lower quadrant/left lower quadrant/suprapubic area with guarding. No CVA tenderness is noted. Nondistended. No rigidity. Bowel sounds normal in all 4 quadrants. No distention noted. No organomegaly noted. No visible injury noted. No rebound tenderness. Negative Rovsing sign. Negative obturator's sign. Negative psoas sign. Negative Uclver sign. Back: Full range of motion noted. Skin: Skin warm and dry. Normal skin color. Normal skin turgor. No rashes/lesions/lacerations noted. Extremities: Extremities exhibit normal range of motion. Extremities nontender. Neuro: Oriented X 3. No motor deficit. No sensory deficit. Reflexes normal. Normal steady gait. Course Course Course Narrative: 50-year-old female who is being followed by Dr. Oneida Monroy for irregular vaginal bleeding and history of ovarian cyst presenting to the ED after being sent by Dr. Mohamud to rule out appendicitis as patient has been having right lower quadrant/left lower quadrant/suprapubic abdominal pain for the past few days worse today. The abdominal pain radiates to her back. It is worse on the right lower quadrant. She denies any fevers, chills, dizziness, headaches, chest pain or shortness of breath, dysuria, hematuria, black or bloody stools, diarrhea or constipation, abnormal vaginal discharge, weakness, recent travel or sick contacts or any other symptoms complaints or concerns at this time. Dr. Mohamud be called me to expect this patient and he already had a UA in the office which was negative. - Labs were obtained while patient was in triage in all labs are within normal limits. Scan of abdomen and pelvis with IV contrast revealed normal appendix. Diverticulosis but no evidence of acute diverticulitis and possibly hemorrhagic cysts/follicles follow-up pelvic ultrasound in 6-12 weeks could be obtained if clinically indicated and uterine fibroid. - therefore I consulted with Dr. Oneida Monroy he reported that the patient can be discharged with symptomatic relief and he can follow up with her in office in a few weeks and he will order the ultrasound. Will DC home with instructions return if any new or worsening symptoms to follow up with primary care provider/Dr. Oneida Monroy. Patient understands agrees with this plan. MDM - Abdominal Pain Medical Records Attestation: I reviewed the patient's medical records. Lab Data Attestation: I reviewed the patient's lab results. Result diagrams: 12/31/20 13:22 12/31/20 13:22 Labs: Lab Results 12/31/20 12/31/20 Range/Units 13:22 13:22 WBC 5.9 (4.8-10.8) X10*3/uL RBC 4.39 (4.20-5.50) X10*6/uL Hgb 13.4 (12.0-16.0) g/dl Hct 41.0 (37-47) % MCV 93.4 (80-98) fL MCH 30.5 (27.0-33.0) pg MCHC 32.7 (31.0-35.0) g/dl RDW 14.7 (11.0-16.0) % Plt Count 331 (160-400) X10*3/uL MPV 10.1 (9.4-12.3) fL Immature Gran % (Auto) 0.3 (0.0-0.4) % Neut % (Auto) 65.6 (45-73) % Lymph % (Auto) 22.4 (20-40) % [place] % (Auto) 9.1 (2-11) % Eos % (Auto) 1.9 (0-4) % Baso % (Auto) 0.7 (0-2) % Lymph # (Auto) 1.3 (1.2-4.9) X10*3/uL [place] # (Auto) 0.5 (0.1-1.2) X10*3/uL Eos # (Auto) 0.1 (0.0-0.4) X10*3/uL Baso # (Auto) 0.0 (0.0-0.2) X10*3/uL Abs Immat Gran (auto) 0.02 (0.00-0.03) X10*3/uL Absolute Neuts (auto) 3.9 (2.0-8.3) X10*3/uL Absolute Nucleated RBC 0.000 (0.0-0.012) X10*3/uL Nucleated RBC % (auto) 0.0 (0.0-0.2) /100WBC Sodium 139 (135-145) mmol/L Potassium 4.8 (3.3-5.1) mmol/L Chloride 108 (96-108) mmol/L Carbon Dioxide 24 (22-29) mmol/L Anion Gap 12 (12-20) BUN 10 (9-16) mg/dL Creatinine 0.84 (0.5-1.4) mg/dL Estim Creat Clear Calc 110.6 Estimated GFR > 60 Random Glucose 93 (60-115) mg/dL Calcium 9.7 (8.4-10.2) mg/dL Total Bilirubin 0.2 (0.0-1.0) mg/dL AST 14 (5-31) U/L ALT 13 (0-31) U/L Alkaline Phosphatase 70 (39-117) U/L Total Protein 6.6 (6.5-8.0) g/dL Albumin 4.0 (3.5-5.0) g/dL Imaging Data CT scan - abdomen: Attestation: I personally reviewed and interpreted this imaging study as follows: Radiologist's impression: FINDINGS: LUNG BASES: The visualized lung bases are unremarkable.? LIVER, GALLBLADDER, AND BILIARY TREE: The liver is normal in size, shape, and attenuation. No focal hepatic lesion or biliary ductal dilatation is present. The gallbladder is unremarkable with no evidence of radiopaque gallstones, gallbladder wall thickening, or obvious pericholecystic inflammatory changes.? PANCREAS: No focal lesions. The main pancreatic duct is nondilated. There is no significant peripancreatic free fluid or fat stranding.? SPLEEN: Unremarkable.? ADRENAL GLANDS: Unremarkable.? KIDNEYS AND URETERS: The kidneys are normal in size, shape, and attenuation. No hydronephrosis, hydroureter, or calculi seen. No perinephric stranding. ? BLADDER: Unremarkable.? GASTROINTESTINAL TRACT: The stomach and the small bowel are nondilated. The appendix is unremarkable. There is moderate diverticulosis throughout the descending colon and sigmoid colon but no evidence of acute diverticulitis. There is no bowel obstruction.? ABDOMINAL WALL: No significant hernia is appreciated.? LYMPH NODES: No lymphadenopathy by size criteria. VASCULAR: Unremarkable. PELVIC VISCERA: Anteverted uterus. Redemonstration of an approximately 4.3 cm fibroid in the posterior aspect of the lower uterine body, unchanged since 2019. In the left ovary there is a 2.4 cm simple functional follicle no require further workup. In the right ovary there is a thinly septated versus 2 closely apposed hyperattenuating lesions (up to 33 Hounsfield units) measuring approximately 4.4 x 3.1 cm which are almost certainly benign.? OSSEOUS STRUCTURES: No acute or aggressive osseous abnormalities.? CT/CT abdomen pelvis w con IMPRESSION: Normal appendix. ? Diverticulosis but no evidence of acute diverticulitis. ? Hyperattenuating lesions in the right ovary are almost certainly benign representing hemorrhagic cysts/follicles. A follow-up pelvic ultrasound in 6-12 weeks could be obtained if clinically indicated. ? Uterine fibroid. Discharge Plan Discharge Clinical Impression: Diverticulosis, Haemorrhagic cyst, Uterine fibroid Patient Disposition: Home, Self-Care Instructions: Ovarian Cyst (ED), Diverticulosis (ED) Prescriptions: New oxycodone 5 mg tablet 5 mg PO Q6H PRN (Reason: pain) Qty: 14 RF: 0 No Action naproxen 500 mg tablet 500 mg PO BID PRN (Reason: pain) Qty: 20 RF: 0 albuterol sulfate 2 mg/5 mL syrup 2 mg PO TID RF: 0 azelastine 137 mcg (0.1 %) aerosol,spray 2 spray intranasal BID RF: 0 Flovent HFA 220 mcg/actuation HFA aerosol inhaler 2 puff inhalation BID RF: 0 omeprazole 20 mg capsule,delayed release(DR/EC) 20 mg PO DAILY RF: 0 dicyclomine 10 mg capsule 10 mg PO QID RF: 0 Arnuity Ellipta 200 mcg/actuation blister with device 1 inh PO DAILY RF: 0 Referrals: Laury King [Primary Care Provider] - 2 days José Miguel Mohamud MD [Physician] - 2 days Print Language: [place] [facility] Past Medical History Attestation statement: The following information was validated with the patient. Medical History IBS (irritable bowel syndrome) No known health problems Seasonal allergies Surgical History History of ankle surgery Family History Family History Maternal Grandmother Breast CA Social History Social History Alcohol intake: current Alcohol intake frequency: a few times a week Alcohol type: beer Patient Tobacco Use Status: Current everyday Tobacco user Advance Directives: No Advance Directives Information Provided: No
== END 2020-12-31 18:08 | disposition home or self-care (01) ==
PROVIDERS: Emergency Provider Emergency Medicine; PCP Nurse Practitioner
DX: K57.30 Diverticulosis of large intestine without perforation or abscess without bleeding (principal); D25.9 Leiomyoma of uterus, unspecified; R10.31 Right lower quadrant pain; R10.32 Left lower quadrant pain; Z79.899 Other long term (current) drug therapy; F17.200 Nicotine dependence, unspecified, uncomplicated; Z71.6 Tobacco abuse counseling
CPT/HCPCS: 36415; 74177; 80053; 85025; 99283; 99284; Q9967

== ENCOUNTER 2021-12-02 12:25 | Outpatient (REF) | payer MEDICAID, SELFPAY ==
--- NOTE | ~2021-12-02 | XR_ITS ---
EXAMINATION: XR LUMBOSACRAL SPINE WITH OBLIQUES CLINICAL INFORMATION: Low back pain and sciatica COMPARISON: None TECHNIQUE: AP, both oblique, and lateral views of the lumbar spine. Lateral view of the lumbosacral junction. FINDINGS: There is mild curvature of the lumbar spine to the left. Bone alignment is otherwise normal. Disc spaces are normal. There is no pars defect. XR/XR lumbar spine 4V min IMPRESSION: Mild curvature of the lower lumbar spine to the left. Otherwise unremarkable exam.
== END 2021-12-02 12:26 | disposition home or self-care (01) ==
LOC: HO.XRAY 12:25
PROVIDERS: Absent Provider Nurse Practitioner; PCP Nurse Practitioner; Visit Provider Internal Medicine
DX: M54.41 Lumbago with sciatica, right side (principal)
CPT/HCPCS: 72110